=== PATIENT | female | born 1985 | race Caucasian/White ===

== ENCOUNTER 2016-04-07 06:12 | Emergency (ER) | payer MEDICAID ==
[~2016-04-07] VITALS: Ht 172.7 cm; Wt 72.7 kg
[~2016-04-07 06:12] MED LIST: DSS100 PO; FERR-89 PO; IBUP-1547 PO; PERCT PO; PREN-114 PO
[2016-04-07] MEDS: KETOROLAC TROMETHAMINE 60 MG/2 ML VIAL IM ONE ×2 (07:12→08:31)
[2016-04-07 07:32] LABS: BASOPHILS % (AUTO) 0.3 % (0.0-2.0); EOSINOPHILS % (AUTO) 1.8 % (1.0-6.0); HEMATOCRIT 37.4 % (36-46); HEMOGLOBIN 12.5 g/dL (12.0-16.0); LYMPHOCYTES # (AUTO) 1.9 K/uL (1.0-4.8); LYMPHOCYTES % (AUTO) 23.7 % (22.0-44.0); MEAN CORPUSCULAR HGB CONC 33.4 G/dL (31.0-37.0); MEAN CORPUSCULAR VOLUME 87 fL (80-100); MONOCYTES # (AUTO) 0.7 K/uL (0.1-1.0); MONOCYTES % (AUTO) 8.5 % (2.0-9.0); NEUTROPHILS # (AUTO) 5.4 K/uL (1.8-7.7); NEUTROPHILS % (AUTO) 65.7 % (40.0-70.0); PLATELET COUNT (AUTO) 255 K/uL (150-450); RED CELL DISTRIBUTION WIDTH 12.4 % (11.5-14.5); WHITE BLOOD COUNT (AUTO) 8.2 K/uL (4.5-11.0)
[2016-04-07 08:35] VITALS: BP 127/66
== END 2016-04-07 08:38 | disposition home or self-care (01) ==
LOC: EMS 06:13
DX: O20.0 Threatened abortion (principal); Z3A.10 10 weeks gestation of pregnancy; Z88.5 Allergy status to narcotic agent
CPT/HCPCS: 36415; 76801; 76817; 84702; 85025; 86901; 96372; 99285; J1885

== ENCOUNTER 2016-04-08 22:02 | Emergency (ER) | payer MEDICAID ==
[~2016-04-08] VITALS: Ht 170.2 cm; Wt 54.5 kg
[2016-04-08 22:42] LABS: BASOPHILS # (AUTO) 0.04 K/uL (0.00-0.20); BASOPHILS % (AUTO) 0.4 % (0.0-2.0); EOSINOPHILS # (AUTO) 0.09 K/uL (0.00-0.70); EOSINOPHILS % (AUTO) 0.78 % (1.0-6.0); HEMATOCRIT 33.8 % (36-46); HEMOGLOBIN 11.5 g/dL (12.0-16.0); LYMPHOCYTES # (AUTO) 1.8 K/uL (1.0-4.8); LYMPHOCYTES % (AUTO) 14.9 % (22.0-44.0); MEAN CORPUSCULAR HEMOGLOBIN 29.4 pg (26.0-34.0); MEAN CORPUSCULAR HGB CONC 33.9 G/dL (31.0-37.0); MEAN CORPUSCULAR VOLUME 87 fL (80-100); MONOCYTES # (AUTO) 0.8 K/uL (0.1-1.0); MONOCYTES % (AUTO) 6.9 % (2.0-9.0); NEUTROPHILS # (AUTO) 9.1 K/uL (1.8-7.7); PLATELET COUNT (AUTO) 244 K/uL (150-450); RED CELL DISTRIBUTION WIDTH 13.2 % (11.5-14.5); WHITE BLOOD COUNT (AUTO) 11.9 K/uL (4.5-11.0)
[2016-04-09] MEDS ORDERED: ACETAMINOPHEN 500 MG TABLET PO ONE (02:00)
[2016-04-09 04:56] VITALS: BP 110/76
== END 2016-04-09 05:11 | disposition home or self-care (01) ==
LOC: EMS 22:04
DX: O03.9 Complete or unspecified spontaneous abortion without complication (principal); Z3A.10 10 weeks gestation of pregnancy; Z88.8 Allergy status to other drugs, medicaments and biological substances
CPT/HCPCS: 76801; 76817; 99285

== ENCOUNTER 2017-06-03 10:25 | Observation (INO) | payer MEDICAID ==
[~2017-06-03] VITALS: Ht 170.2 cm; Wt 85.7 kg
[2017-06-03] MEDS: RINGERS SOLUTION,LACTATED 1,000 ML IV SCH ×3 (13:50→20:55)
[2017-06-03] MEDS: BETAMETHASONE SOLUSPAN 6 MG/ML 5 ML VIAL IM SCH (14:10)
[2017-06-03 19:36] VITALS: BP 106/58
[2017-06-04] MEDS: BETAMETHASONE SOLUSPAN 6 MG/ML 5 ML VIAL IM SCH (02:04)
== END 2017-06-04 09:20 | disposition home or self-care (01) ==
LOC: 4S 10:25
PROVIDERS: ADMIT Obstetrics & Gynecology; ATTEND Obstetrics & Gynecology
DX: Z34.83 Encounter for supervision of other normal pregnancy, third trimester (principal); Z3A.35 35 weeks gestation of pregnancy
CPT/HCPCS: 59025; 76805 ×2; 96360; 96361 ×2; 96372 ×2; G0378 ×2; J0702 ×2; J7120 ×2

== ENCOUNTER 2017-06-06 09:04 | Observation (INO) | payer MEDICAID ==
[2017-06-06] MEDS ORDERED: PREN-134 PO (09:09)
[2017-06-06 09:35] VITALS: BP 99/56
[2017-06-06] MEDS ORDERED: RINGERS SOLUTION,LACTATED 1,000 ML IV ONE (10:23)
[2017-06-06] MEDS ORDERED: RINGERS SOLUTION,LACTATED 1,000 ML IV SCH (10:30)
== END 2017-06-06 12:50 | disposition home or self-care (01) ==
LOC: 4S 09:04
PROVIDERS: ADMIT Obstetrics & Gynecology; ATTEND Obstetrics & Gynecology
DX: Z34.83 Encounter for supervision of other normal pregnancy, third trimester (principal); Z3A.35 35 weeks gestation of pregnancy
CPT/HCPCS: 59025; 76805; 96360; 96361; G0378; J7120

== ENCOUNTER 2017-06-09 07:10 | Observation (INO) | payer MEDICAID ==
[~2017-06-09] VITALS: Ht 170.2 cm; Wt 85.3 kg
[~2017-06-09 07:10] MED LIST changes: -DSS100 PO; -FERR-89 PO; -IBUP-1547 PO; -PERCT PO; -PREN-114 PO; +PREN-134 PO
[2017-06-09 07:28] VITALS: BP 110/65
== END 2017-06-09 08:50 | disposition home or self-care (01) ==
LOC: 4S 07:10
PROVIDERS: ADMIT Obstetrics & Gynecology; ATTEND Obstetrics & Gynecology
DX: Z34.83 Encounter for supervision of other normal pregnancy, third trimester (principal); Z3A.35 35 weeks gestation of pregnancy
CPT/HCPCS: 59025; 76805; G0378

== ENCOUNTER 2017-06-13 09:10 | Observation (INO) | payer MEDICAID ==
[~2017-06-13] VITALS: Ht 170.2 cm; Wt 86.6 kg
[2017-06-13 09:28] VITALS: BP 111/60
== END 2017-06-13 10:20 | disposition home or self-care (01) ==
LOC: 4S 09:10
PROVIDERS: ADMIT Obstetrics & Gynecology; ATTEND Obstetrics & Gynecology
DX: Z34.93 Encounter for supervision of normal pregnancy, unspecified, third trimester (principal); Z3A.36 36 weeks gestation of pregnancy
CPT/HCPCS: 59025; 76805; G0378

== ENCOUNTER 2017-06-16 09:20 | Observation (INO) | payer MEDICAID ==
[~2017-06-16] VITALS: Ht 170.2 cm; Wt 87.1 kg
[2017-06-16 09:39] VITALS: BP 113/69
== END 2017-06-16 10:40 | disposition home or self-care (01) ==
LOC: 4S 09:20
PROVIDERS: ADMIT Obstetrics & Gynecology; ATTEND Obstetrics & Gynecology
DX: O26.893 Other specified pregnancy related conditions, third trimester (principal); M54.5 Low back pain; Z3A.36 36 weeks gestation of pregnancy
CPT/HCPCS: 59025; 76805; G0378

== ENCOUNTER 2017-06-20 09:35 | Observation (INO) | payer SELFPAY ==
[~2017-06-20] VITALS: Ht 170.2 cm; Wt 88.0 kg
[2017-06-20 09:54] VITALS: BP 103/65
== END 2017-06-20 10:50 | disposition home or self-care (01) ==
LOC: 4S 09:35
PROVIDERS: ADMIT Obstetrics & Gynecology; ATTEND Obstetrics & Gynecology
DX: O26.893 Other specified pregnancy related conditions, third trimester (principal); Z3A.37 37 weeks gestation of pregnancy
CPT/HCPCS: 59025; 76805; G0378

== ENCOUNTER 2017-06-23 09:30 | Inpatient (IN) | payer MEDICAID ==
[~2017-06-23] VITALS: Ht 170.2 cm; Wt 88.5 kg
[2017-06-23 10:08] VITALS: BP 105/62
[2017-06-23 12:43] LABS: BASOPHILS % (AUTO) 0.3 % (0.0-2.0); EOSINOPHILS % (AUTO) 0.4 % (1.0-6.0); HEMATOCRIT 36.7 % (36-46); HEMOGLOBIN 12.6 g/dL (12.0-16.0); LYMPHOCYTES # (AUTO) 1.1 K/uL (1.0-4.8); LYMPHOCYTES % (AUTO) 13.6 % (22.0-44.0); MEAN CORPUSCULAR HEMOGLOBIN 33.1 pg (26.0-34.0); MEAN CORPUSCULAR HGB CONC 34.4 G/dL (31.0-37.0); MEAN CORPUSCULAR VOLUME 97 fL (80-100); MONOCYTES # (AUTO) 0.6 K/uL (0.1-1.0); MONOCYTES % (AUTO) 6.8 % (2.0-9.0); NEUTROPHILS # (AUTO) 6.5 K/uL (1.8-7.7); NEUTROPHILS % (AUTO) 78.9 % (40.0-70.0); PLATELET COUNT (AUTO)-OB 247 K/uL (150-450); RED CELL DISTRIBUTION WIDTH 13.4 % (11.5-14.5)
[2017-06-23 12:55] LABS: ANION GAP 7 mmol/L (8-16); CALCIUM, TOTAL 8.8 mg/dL (8.8-10.5); CARBON DIOXIDE 25 mmol/L (22-29); CHLORIDE 100 mmol/L (98-107); CREATININE 0.47 mg/dL (0.60-1.30); GLOMERULAR FILTR. RATE CALC > 60 mL/min (>60); GLUCOSE,RANDOM 99 mg/dL (70-110); POTASSIUM 4.3 mmol/L (3.5-5.1); SODIUM SERUM 132 mmol/L (136-145); UREA NITROGEN, BLOOD 8 mg/dL (7-18)
[2017-06-23 13:02] LABS: ALANINE AMINOTRANSFERASE 90 U/L (12-78); ALBUMIN 2.7 g/dL (3.4-5.0); ALKALINE PHOSPHATASE 239 U/L (46-116); ASPARTATE AMINOTRANSFERASE 42 U/L (15-37); BILIRUBIN,TOTAL 2.5 mg/dL (0.1-1.0)
[2017-06-23] MEDS: RINGERS SOLUTION,LACTATED 1,000 ML IV SCH ×2 (14:20→17:54)
[2017-06-24] MEDS ORDERED: CITRIC ACID/SODIUM CITRATE 30 ML SOLUTION UDCUP PO ONE (00:45)
[2017-06-24] MEDS ORDERED: METOCLOPRAMIDE HCL 5 MG/ML 2 ML VIAL IVP ONE (00:45)
[2017-06-24] MEDS: RINGERS SOLUTION,LACTATED 1,000 ML IV SCH ×4 (04:36→22:42)
[2017-06-24] MEDS ORDERED: FentaNYL CITRATE-PF 100 MCG/2 ML VIAL ONE ×2 (11:23→13:19)
[2017-06-24] MEDS ORDERED: MORPHINE SULFATE/PF 0.5 MG/ML 10 ML AMP ONE (11:23)
[2017-06-24] MEDS ORDERED: CeFAZolin 2 GM/DEXTROSE 50 ML IV ONE (11:24)
[2017-06-24] MEDS ORDERED: GUM MASTIC/STORAX/MSAL/ALCOHOL LIQUID 0.67 ML VIAL TP ONE (12:51)
[2017-06-24] MEDS ORDERED: OXYTOCIN 30 UNITS/LACT RINGERS 500 ML IV ONE (13:43)
[2017-06-24] MEDS ORDERED: LANOLIN 7 GM OINTMENT TP PRN (13:45)
[2017-06-24] MEDS ORDERED: OxyCODONE HCL/ACETAMINOPHEN 5-325 MG TABLET PO PRN (13:45)
[2017-06-24] MEDS ORDERED: ACETAMINOPHEN 1000 MG/ISO-OSM 100 ML IV ONE ×2 (14:25→14:30)
[2017-06-24] MEDS ORDERED: DiphenhydrAMINE HCL 50 MG/ML VIAL IVP PRN ×2 (14:30)
[2017-06-24] MEDS ORDERED: FentaNYL CITRATE-PF 100 MCG/2 ML VIAL IVP PRN ×3 (14:30)
[2017-06-24] MEDS ORDERED: NALOXONE HCL 0.4 MG/ML VIAL IVP PRN (14:30)
[2017-06-24] MEDS ORDERED: ONDANSETRON HCL 4 MG/2 ML VIAL IVP PRN ×2 (14:30)
[2017-06-24] MEDS ORDERED: MEPERIDINE-PF 25 MG/ML SYRINGE IVP PRN (14:30)
[2017-06-24] MEDS ORDERED: NALBUPHINE HCL 10 MG/ML VIAL IVP PRN ×3 (14:30)
[2017-06-24] MEDS ORDERED: MORPHINE SULFATE 2 MG/ML SYRINGE IVP PRN (14:30)
[2017-06-24] MEDS ORDERED: MORPHINE SULFATE 10 MG/ML SYRINGE IVP PRN (14:30)
[2017-06-24] MEDS ORDERED: RINGERS SOLUTION,LACTATED 1,000 ML IV ONE (14:39)
[2017-06-24] MEDS: FentaNYL CITRATE-PF 100 MCG/2 ML VIAL IVP PRN (18:09)
[2017-06-24] MEDS ORDERED: OXYGEN THERAPY IH SCH ×3 (20:00)
[2017-06-24] MEDS: KETOROLAC TROMETHAMINE 30 MG/ML VIAL IVP SCH (20:04)
[2017-06-24] MEDS: ACETAMINOPHEN 1000 MG/ISO-OSM 100 ML IV SCH (22:41)
[2017-06-25] MEDS: KETOROLAC TROMETHAMINE 30 MG/ML VIAL IVP SCH (01:42)
[2017-06-25] MEDS: FentaNYL CITRATE-PF 100 MCG/2 ML VIAL IVP PRN ×3 (05:30→10:34)
[2017-06-25 05:54] LABS: BASOPHILS % (AUTO) 0.3 % (0.0-2.0); EOSINOPHILS % (AUTO) 0.5 % (1.0-6.0); HEMATOCRIT 31.9 % (36-46); HEMOGLOBIN 11.2 g/dL (12.0-16.0); LYMPHOCYTES # (AUTO) 1.9 K/uL (1.0-4.8); LYMPHOCYTES % (AUTO) 13.4 % (22.0-44.0); MEAN CORPUSCULAR HEMOGLOBIN 33.9 pg (26.0-34.0); MEAN CORPUSCULAR HGB CONC 35.3 G/dL (31.0-37.0); MEAN CORPUSCULAR VOLUME 96 fL (80-100); MONOCYTES # (AUTO) 0.8 K/uL (0.1-1.0); MONOCYTES % (AUTO) 5.8 % (2.0-9.0); NEUTROPHILS # (AUTO) 11.6 K/uL (1.8-7.7); PLATELET COUNT (AUTO)-OB 193 K/uL (150-450); RED BLOOD CELL COUNT(AUTO) 3.31 MIL/uL (4.00-5.20); RED CELL DISTRIBUTION WIDTH 13.6 % (11.5-14.5)
[2017-06-25] MEDS: ACETAMINOPHEN 1000 MG/ISO-OSM 100 ML IV SCH (06:50)
[2017-06-25] MEDS: MAGNESIUM HYDROXIDE SUSPENSION 30 ML UDCUP PO SCH ×2 (09:28→20:53)
[2017-06-25] MEDS: IBUPROFEN 800 MG TABLET PO PRN ×3 (11:49→23:46)
[2017-06-25] MEDS ORDERED: IBUPROFEN 800 MG TABLET PO PRN (13:45)
[2017-06-25] MEDS: OxyCODONE HCL/ACETAMINOPHEN 5-325 MG TABLET PO PRN ×2 (14:28→17:14)
[2017-06-26] MEDS: IBUPROFEN 800 MG TABLET PO PRN ×2 (05:19→17:48)
[2017-06-26] MEDS: OxyCODONE HCL/ACETAMINOPHEN 5-325 MG TABLET PO PRN ×2 (13:05→20:11)
[2017-06-26] MEDS: MAGNESIUM HYDROXIDE SUSPENSION 30 ML UDCUP PO SCH (20:11)
[2017-06-27] MEDS: IBUPROFEN 800 MG TABLET PO PRN (10:14)
[2017-06-27] MEDS ORDERED: ACET1TAB12 PO (12:56)
[2017-06-27] MEDS ORDERED: FERR-89 PO (12:57)
[2017-06-27] MEDS ORDERED: IBUP-2070 PO (13:03)
[2017-06-27] MEDS ORDERED: DSS100 PO (13:04)
== END 2017-06-27 14:30 | disposition home or self-care (01) | DRG 540 ==
LOC: OBSVTOIN 09:30 → 4S 09:30
PROVIDERS: ADMIT Obstetrics & Gynecology; ATTEND Obstetrics & Gynecology
PROC: 10D00Z1 Extraction of Products of Conception, Low, Open Approach (ICD-10-PCS; principal; 2017-06-24)
DX: O26.62 Liver and biliary tract disorders in childbirth (principal); K83.1 Obstruction of bile duct; O34.211 Maternal care for low transverse scar from previous cesarean delivery; Z37.0 Single live birth; Z3A.38 38 weeks gestation of pregnancy
CPT/HCPCS: 76811; 86850; 86900; 86901; 87081; J0131; J0690; J1885; J2274; J2300; J2765; J3010; J7120

== ENCOUNTER 2022-02-08 15:01 | Emergency (ER) | payer MEDICAID, OTHER ==
[~2022-02-08] VITALS: Ht 165.1 cm; Wt 65.9 kg
[~2022-02-08 15:01] MED LIST changes: +ACET-2080 PO; +DSS100 PO; +FERR325T27 PO; +IBUP-2070 PO
[2022-02-08] MEDS ORDERED: ONDANSETRON HCL 4 MG/2 ML VIAL IVP ONE (16:45)
[2022-02-08] MEDS ORDERED: SODIUM CHLORIDE 0.9% 1,000 ML IV ONE (16:45)
[2022-02-08 17:37] LABS: BASOPHILS % (AUTO) 0.2 % (0.0-2.0); EOSINOPHILS % (AUTO) 0 % (1.0-6.0); HEMATOCRIT 36.4 % (36-46); HEMOGLOBIN 12.4 g/dL (12.0-16.0); LYMPHOCYTES # (AUTO) 0.7 K/uL (1.0-4.8); MEAN CORPUSCULAR HEMOGLOBIN 31.8 pg (26.0-34.0); MEAN CORPUSCULAR VOLUME 94 fL (80-100); MONOCYTES # (AUTO) 0.4 K/uL (0.1-1.0); MONOCYTES % (AUTO) 2.6 % (2.0-9.0); NEUTROPHILS # (AUTO) 12.9 K/uL (1.8-7.7); PLATELET COUNT (AUTO) 333 K/uL (150-450); RED BLOOD CELL COUNT(AUTO) 3.88 MIL/uL (4.00-5.20); RED CELL DISTRIBUTION WIDTH 13.1 % (11.5-14.5)
[2022-02-08 17:41] LABS: NEUTROPHILS % (AUTO) 92.2 % (40.0-70.0)
[2022-02-08 17:48] LABS: ANION GAP 7 mmol/L (8-16); CALCIUM, TOTAL 9.5 mg/dL (8.8-10.5); CARBON DIOXIDE 25 mmol/L (22-29); CHLORIDE 103 mmol/L (98-107); CREATININE 0.61 mg/dL (0.60-1.30); GLUCOSE,RANDOM 112 mg/dL (70-110); POTASSIUM 4.8 mmol/L (3.5-5.1); SODIUM SERUM 135 mmol/L (136-145); UREA NITROGEN, BLOOD 10 mg/dL (7-18)
[2022-02-08 17:49] LABS: GLOMERULAR FILTR. RATE CALC > 60 mL/min (>60)
[2022-02-08 18:01] LABS: ALANINE AMINOTRANSFERASE 153 U/L (12-78); ALBUMIN 4.2 g/dL (3.4-5.0); ALKALINE PHOSPHATASE 97 U/L (46-116); ASPARTATE AMINOTRANSFERASE 183 U/L (15-37); BILIRUBIN,TOTAL 0.5 mg/dL (0.1-1.0); HCG,QUANTITATIVE < 1 mIU/mL (0-6); LIPASE 112 U/L (73-393); TOTAL PROTEIN, SERUM 8.1 g/dL (6.4-8.2)
[2022-02-08 18:12] LABS: COVID AG,FIA SOURCE NASOPHARYNGEAL
[2022-02-08 18:18] LABS: APPEARANCE,URINE CLEAR (CLEAR); BILIRUBIN,URINE NEGATIVE (NEGATIVE); GLUCOSE, URINE (UA) NEGATIVE (NEGATIVE); KETONES,URINE NEGATIVE (NEGATIVE); LEUKOCYTE ESTERASE ,URINE NEGATIVE (NEGATIVE); NITRATE,URINE NEGATIVE (NEGATIVE); OCCULT BLOOD,URINE NEGATIVE (NEGATIVE); PH,URINE 6.5 (5.0-8.0); PROTEIN,URINE NEGATIVE (NEGATIVE); SPECIFIC GRAVITIY, URINE 1.005 (1.003-1.030); UROBILINOGEN,URINE <=1.0 mg/dL (<=1.0)
[2022-02-08 18:27] LABS: AMORPHOUS SEDIMENT,UR Rare /LPF (None Seen); BACTERIA,URINE None Seen /HPF (None Seen); RBC,URINE None Seen /HPF (0-2); SQUAMOUS EPITHELIAL CELL,UR Few /LPF (None Seen); WBC,URINE None Seen /HPF (0-5)
[2022-02-08 18:38] LABS: INFLUENZA TYPE A NEGATIVE FOR TYPE A (NEGATIVE); INFLUENZA TYPE B NEGATIVE FOR TYPE B (NEGATIVE)
[2022-02-08 20:45] VITALS: BP 103/66
== END 2022-02-08 20:51 | disposition home or self-care (01) ==
LOC: EMS 15:03
DX: K80.20 Calculus of gallbladder without cholecystitis without obstruction (principal); R10.30 Lower abdominal pain, unspecified; Z90.49 Acquired absence of other specified parts of digestive tract; Z20.822 Contact with and (suspected) exposure to COVID-19
CPT/HCPCS: 99285; 96374; 76700; 96361; 87426; 80053; 81001; 83690; 84702; 85025; 87804; 36415; J2405; J7030